=== PATIENT | male | born 1995 | race Caucasian/White ===

== ENCOUNTER 2021-07-09 07:36 | Emergency (ER) | payer OTHER ==
[2021-07-09] MEDS ORDERED: Tetracaine HCl/PF 0.5% 4 ML Bottle ONE (08:07)
[2021-07-09] MEDS ORDERED: Tetracaine HCl/PF 0.5% 4 ML Bottle EYEBOTH ONE (08:15)
--- NOTE | 2021-07-09 08:36 | EDM.PDOC ---
ED HPI GENERAL MEDICAL PROBLEM - General Chief Complaint: Eye Problems Stated Complaint: RIGHT EYE HAS DEBRI Time Seen by Provider: 07/09/21 08:02 - History of Present Illness INITIAL COMMENTS - FREE TEXT/NARRATIVE: CHIEF COMPLAINT(S): Right eye pain HISTORY OF PRESENT ILLNESS: This is a 26-year-old man who is experiencing right eye pain. He denies any past medical history. Patient states that last night he thinks he got a bug into his right eye. He states that he is experiencing a scratching pain on his lower eyelid. He denies any loss of vision but states that he does have blurry vision which is on both sides. He states that he may need glasses. He denies any redness or purulent drainage. He denies any floaters. He denies any injury to the eye. States that and he felt that it was hurting that he did irrigate his eyes at home. He has not yet taken anything for pain medication. He denies any family history of glaucoma or any others. She denies any other symptoms. REVIEW OF SYSTEMS: Constitutional: Denies fever, chills. Eyes: Denies eye pain Ears, Nose, Mouth, & Throat: Positive for eye pain and lower eyelid pain. Denies earache Cardiovascular: Denies chest pain Respiratory: Denies shortness of breath Gastrointestinal: Denies Nausea, vomiting, diarrhea, hematochezia. Genitourinary: Denies hematuria Skin:Denies a rash MSK: Denies joint pain Neurological: Positive for blurred vision. Denies loss of vision. Psychiatric: Denies depression PAST MEDICAL HISTORY: As per history of present illness and as reviewed below otherwise noncontributory. SURGICAL HISTORY: As per history of present illness and as reviewed below otherwise noncontributory. SOCIAL HISTORY: As per history of present illness and as reviewed below otherwise noncontributory. FAMILY HISTORY: As per history of present illness and as reviewed below otherwise noncontributory. EXAMINATION OF ORGAN SYSTEMS/BODY AREAS: Constitutional: Blood pressure was 136/89, heart rate 70, respiratory rate 16 with an oxygen saturation 98% on room air. Temperature 36.6 General: Young man who does not appear to be in acute distress. Psychiatric: Appropriate mood and affect. Eyes: No scleral icterus. There is conjunctival erythema on the left eye. Visual acuity is 20/50 in both eyes. Extraocular movements intact. Pupils were 3 mm and reactive bilaterally. No hyphema or hypopyon. With lid eversion there was no evidence of foreign body in either eyes. Using fluorescein there is no evidence of corneal abrasion. The lower right eyelid has evidence of mild erythema and swelling consistent with a hordeolum. No signs of entrapment. No proptosis. ENMT: Moist mucous membranes. No pharyngeal erythema Cardiovascular: Regular, rate, and rhythm. No gallops, murmurs, or rubs. Bilateral upper extremity pulses symmetric and intact. No peripheral edema. No JVD. Respiratory: Lungs clear to auscultation bilaterally. No wheezes, rales, or rhonchi. Skin: Lower eyelid is mildly erythematous. Neurological: Alert, GCS 15 MEDICAL DECISION MAKING AND COURSE IN THE ED WITH INTERPRETATION/REVIEW OF DIAGNOSTIC STUDIES: This is a 26-year-old man without any significant past medical history who comes to the emergency department with a chief complaint of right eye pain and concern for foreign body. At this time there does not appear to be any evidence of any foreign body. There does appear to be evidence of a stye and no evidence of corneal abrasion or other abnormality. The patient does have some decreased visual acuity however it is equal bilaterally and is not isolated to the eye that is bothering him. I do believe this is secondary to baseline poor vision. I encouraged the patient to follow-up with urgent care physician assistant to get evaluated for glasses. I did discuss treatment for hordeolum. He is to return for any new or worsening symptoms. He was amenable discharge at this time and had no further questions. DISPOSITION: The patient was discharged home in stable condition. The patient will follow up with optometry for reevaluation for need for glasses CONDITION: Good PROCEDURES: None FINAL IMPRESSION(S)/DIAGNOSES: Acute stye of right lower eyelid Thomas Abrams M.D. right eye Pain Score (Numeric/FACES): 5 - Related Data Allergies Allergy/AdvReac Type Severity Reaction Status Date / Time ziprasidone [From Pedrito] Allergy Seizure Verified 07/09/21 08:00 Home Meds: Home Meds . [No Known Home Meds] 07/09/21 [History] Past Medical History - Past Health History Medical/Surgical History: Denies Medical/Surgical History Respiratory History: Reports: Asthma - Infectious Disease History Infectious Disease History: Reports: Chicken Pox Social & Family History - Family History Family Medical History: No Pertinent Family History - Tobacco Use Tobacco Use Status *Q: Current Every Day Tobacco User Years of Tobacco use: 8 Packs/Tins Daily: 0.5 - Recreational Drug Use Recreational Drug Use: No ED ROS GENERAL - Review of Systems Review Of Systems: See Below ED EXAM GENERAL W FULL EYE - Physical Exam Exam: See Below Course - Vital Signs Last Recorded V/S: Last Vital Signs Temp 36.6 C 07/09/21 07:58 Pulse 61 07/09/21 08:45 Resp 18 07/09/21 08:45 BP 112/81 07/09/21 08:45 Pulse Ox 99 07/09/21 08:45 - Orders/Labs/Meds Meds: Medications Discontinued Medications Generic Name Dose Route Start Last Admin Trade Name Freq PRN Reason Stop Dose Admin Tetracaine HCl Confirm 07/09/21 08:07 07/09/21 08:16 Tetracaine Hcl/Pf 0.5% 4 Ml Bottle Administered 07/09/21 08:08 Not Given Dose 4 ml .ROUTE .STK-MED ONE Tetracaine HCl 1 ml 07/09/21 08:15 07/09/21 08:17 Tetracaine Hcl/Pf 0.5% 4 Ml Bottle EYEBOTH 07/09/21 08:16 1 drop ASDIRECTED ONE Administration Departure - Departure Time of Disposition: 08:34 Disposition: Home, Self-Care 01 Condition: Fair Clinical Impression: Hordeolum externum (stye) - Discharge Information *PRESCRIPTION DRUG MONITORING PROGRAM REVIEWED*: No *COPY OF PRESCRIPTION DRUG MONITORING REPORT IN PATIENT DEAN: No Instructions: Stye Referrals: Kamron York [Ordering Only Provider] - Roles,Virginie [Ordering Only Provider] - Forms: ED Department Discharge Additional Instructions: You were evaluated today on an emergent basis. At this time there was not any evidence of any foreign bodies or things underneath your eyelids or around your eyeball. We did use a stain to look for any abrasions and it did not appear that you had any abrasions. At this time given the swelling on the lower eyelid I do believe this is a stye. I recommend that she use warm compresses t hroughout the day and use Tylenol and Motrin as needed for pain. Given that you have vision issues at baseline I do recommend that you follow-up with ophthalmology for follow-up and for possible need for glasses. If you have any worsening swelling, redness, pain, vision loss I would like you to return to the emergency department. Please use: Tylenol 500-1000mg every 6 hours (DO NOT TAKE MORE THAN 4000mg in 1 day) Ibuprofen 400mg every 6 hours (Take with food as it can cause ulcers, GI upset) Example schedule: 8:00 AM (Tylenol 500-1000mg) 11:00 AM (Ibuprofen 400mg) 2:00 PM (Tylenol 500-1000mg) 5:00 PM (Ibuprofen 400mg) [facility] [address] [place] [address] [id number] [address] [address] The patient is informed of any results of their evaluation and diagnostic workup and all questions are answered. They are given discharge instructions and return precautions. The patient is stable for discharge. The patient states they understand and agree with the plan and that they will return if their symptoms get worse or if they have any new concerns. The following information is given to patients seen in the emergency department who are being discharged to home. This information is to outline your options for follow-up care. We provide all patients seen in our emergency department with a follow-up referral. The need for follow-up, as well as the timing and circumstances, are variable depending upon the specifics of your emergency department visit. If you don't have a primary care physician on staff, we will provide you with a referral. We always advise you to contact your personal physician following an emergency department visit to inform them of the circumstance of the visit and for follow-up with them and/or the need for any referrals to a consulting specialist. The emergency department will also refer you to a specialist when appropriate. This referral assures that you have the opportunity for follow-up care with a specialist. All of these measure are taken in an effort to provide you with optimal care, which includes your follow-up. Under all circumstances we always encourage you to contact your private physician who remains a resource for coordinating your care. When calling for follow-up care, please make the office aware that this follow-up is from your recent emergency room visit. If for any reason you are refused follow-up, please contact the [facility] Emergency Department at and asked to speak to the emergency department charge nurse. Sepsis Event Note (ED) - Evaluation Sepsis Screening Result: No Definite Risk
== END 2021-07-09 08:45 | disposition home or self-care (01) ==
LOC: MW.ED 07:36
DX: H00.012 Hordeolum externum right lower eyelid (principal); J45.909 Unspecified asthma, uncomplicated; Z72.0 Tobacco use; Z88.8 Allergy status to other drugs, medicaments and biological substances
CPT/HCPCS: 99283

== ENCOUNTER 2022-01-24 13:11 | Emergency (ER) | payer OTHER ==
[2022-01-24] MEDS ORDERED: Ibuprofen 600 MG Tab PO ONE (13:37)
[2022-01-24] MEDS ORDERED: traMADol 50 MG Tab PO ONE (13:37)
== END 2022-01-24 16:10 | disposition home or self-care (01) ==
LOC: MW.ED 13:11
DX: S89.81XA Other specified injuries of right lower leg, initial encounter (principal); Z88.8 Allergy status to other drugs, medicaments and biological substances; W20.8XXA Other cause of strike by thrown, projected or falling object, initial encounter; Y99.0 Civilian activity done for income or pay
CPT/HCPCS: 73590; 99283; A9270

== ENCOUNTER 2023-03-19 10:28 | Emergency (ER) | payer SELFPAY | END 2023-03-19 12:27 | disposition home or self-care (01) | LOC: MW.ED 10:28 | DX: R21 Rash and other nonspecific skin eruption (principal); J45.909 Unspecified asthma, uncomplicated; Z88.8 Allergy status to other drugs, medicaments and biological substances; Z87.891 Personal history of nicotine dependence | CPT/HCPCS: 99282 ==

== ENCOUNTER 2023-07-10 21:04 | Emergency (ER) | payer BC ==
[2023-07-10] MEDS ORDERED: ceFAZolin 1 GM in Sodium Chloride 0.9% 50 ML IV ONE (21:05)
[2023-07-10 21:17] LABS: BASOPHILS ABSOLUTE AUTO 0.1 K/uL (0.0-0.1); BASOPHILS PERCENT AUTO 0.6 % (0.0-1.5); EOSINOPHILS ABSOLUTE AUTO 0.1 K/uL (0.0-0.7); HEMATOCRIT 45.7 % (38.0-50.0); HEMOGLOBIN 16.2 g/dL (13.0-17.0); MEAN CORPUSCULAR HEMOGLOBIN 30.5 pg (27.0-32.0); MEAN CORPUSCULAR HGB CONC 35.4 g/dL (31.0-37.0); MEAN CORPUSCULAR VOLUME 86.1 fL (80.0-98.0); MONOCYTES ABSOLUTE AUTO 0.5 K/uL (0.0-0.8); MONOCYTES PERCENT AUTO 4.7 % (0.0-15.0); NEUTROPHILS ABSOLUTE AUTO 6.6 K/uL (1.4-5.7); NEUTROPHILS PERCENT AUTO 64.7 % (48.0-80.0); NRBC ABSOLUTE 0 K/uL; PLATELET COUNT,PLT 266 K/uL (150-400); RED BLOOD CELL COUNT 5.31 M/uL (4.50-5.90); WHITE BLOOD CELL COUNT,WBC 10.17 K/uL (4.0-11.0)
[2023-07-10] MEDS ORDERED: Iopamidol 755 MG/ML 500 ML Multipack Bottle IVPUSH ONE (21:20)
[2023-07-10 21:26] LABS: INR 1.05 (0.86-1.11); PTT,PARTIAL THROMBOPLSTIN TIME 26.1 SEC (23.9-30.7)
[2023-07-10 21:38] LABS: A/G RATIO 1.3 (0.9-1.6); ALBUMIN 4.3 g/dL (3.4-5.0); BILIRUBIN TOTAL 0.4 mg/dL (0.2-1.0); CALCIUM 9.1 mg/dL (8.5-10.1); CARBON DIOXIDE,CO2 22.4 mmol/L (21.0-32.0); EST CRCL DRUG DOSING (CG) 104.84 mL/min; POTASSIUM,K 3.8 mmol/L (3.5-5.1); PROTEIN TOTAL,TP 7.7 g/dL (6.4-8.2)
== END 2023-07-10 22:13 | disposition home or self-care (01) ==
LOC: MW.ED 21:04
DX: S21.111A Laceration without foreign body of right front wall of thorax without penetration into thoracic cavity, initial encounter (principal); J45.909 Unspecified asthma, uncomplicated; Z88.8 Allergy status to other drugs, medicaments and biological substances; W26.0XXA Contact with knife, initial encounter
CPT/HCPCS: 12001; 36415; 71045; 71260; 74177; 80053; 80307; 83690; 84484; 85025; 85610; 85730; 93005; 99285; Q9967; 93010; 99284

== ENCOUNTER 2023-07-26 12:14 | Emergency (ER) | payer SELFPAY | END 2023-07-26 14:50 | disposition home or self-care (01) | LOC: MW.ED 12:14 | DX: S21.111D Laceration without foreign body of right front wall of thorax without penetration into thoracic cavity, subsequent encounter (principal); Z48.02 Encounter for removal of sutures; W26.0XXA Contact with knife, initial encounter | CPT/HCPCS: 99281 ==